=== PATIENT | female | born 1985 | race American Indian/Alaskan Native ===

== ENCOUNTER 2016-08-27 12:34 | Emergency (ER) | payer MEDICAID ==
[~2016-08-27] VITALS: Ht 154.9 cm; Wt 97.1 kg
[~2016-08-27 12:34] MED LIST: OMEP-110 PO
[2016-08-27 13:01] VITALS: BP 123/81
[2016-08-27] MEDS ORDERED: ONDANSETRON 2MG/ML, 2ML IVPush ONE (13:30)
[2016-08-27] MEDS ORDERED: SODIUM CHLORIDE 0.9% 1,000ML IVBOLUS ONE (13:30)
[2016-08-27] MEDS ORDERED: SODIUM CHLORIDE FLUSH 10ML SYR IVF ONE (13:30)
[2016-08-27 14:09] LABS: ASPARTATE AMINO TRANSFERASE 14 U/L (15-37); BLOOD UREA NITROGEN 5 mg/dL (7-18)
[2016-08-27] MEDS ORDERED: ONDANSETRON 2MG/ML, 2ML ONE (15:42)
[2016-08-27 16:57] LABS: PATH.CAST-FLAG NOT PRESENT; SPERM-FLAG NOT PRESENT; SRC-FLAG NOT PRESENT; XTAL-FLAG NOT PRESENT; YLC-FLAG NOT PRESENT
== END 2016-08-27 17:41 | disposition home or self-care (01) ==
LOC: ED 15:43
DX: O26.892 Other specified pregnancy related conditions, second trimester (principal); Z3A.19 19 weeks gestation of pregnancy; R10.12 Left upper quadrant pain; G43.909 Migraine, unspecified, not intractable, without status migrainosus
CPT/HCPCS: 36415; 76815; 80053; 81001; 84702; 85025; 87086; 96361; 96374; 99285; J2405; J7030

== ENCOUNTER 2016-12-09 15:08 | Emergency (ER) | payer MEDICAID ==
[~2016-12-09] VITALS: Ht 154.9 cm; Wt 100.5 kg
[2016-12-09] MEDS ORDERED: SODIUM CHLORIDE 0.9% 1,000ML IVBOLUS ONE (15:30)
[2016-12-09] MEDS ORDERED: SODIUM CHLORIDE FLUSH 10ML SYR IVF ONE (15:30)
[2016-12-09] MEDS ORDERED: METOCLOPRAMIDE 5 MG/ML, 2ML IVPush ONE (16:30)
[2016-12-09] MEDS ORDERED: ACETAMINOPHEN 325 MG TABLET PO ONE (16:30)
[2016-12-09] MEDS ORDERED: DIPHENHYDRAMINE 50 MG/ML, 1ML IVPush ONE (16:30)
[2016-12-09] MEDS ORDERED: DIPHENHYDRAMINE 50 MG/ML, 1ML ONE (16:31)
[2016-12-09] MEDS ORDERED: ACETAMINOPHEN 500 MG TABLET ONE (16:31)
[2016-12-09] MEDS ORDERED: METOCLOPRAMIDE 5 MG/ML, 2ML ONE (16:31)
[2016-12-09 18:55] VITALS: BP 108/54
== END 2016-12-09 18:57 | disposition home or self-care (01) ==
LOC: ED 18:51
DX: O26.893 Other specified pregnancy related conditions, third trimester (principal); Z3A.35 35 weeks gestation of pregnancy; G43.911 Migraine, unspecified, intractable, with status migrainosus
CPT/HCPCS: 96361; 96374; 96375; 99285; J1200; J2765; J7030

== ENCOUNTER 2018-04-12 10:15 | Emergency (ER) | payer MEDICAID, OTHER ==
[~2018-04-12] VITALS: Ht 154.9 cm; Wt 100.0 kg
[2018-04-12 10:43] VITALS: BP 123/92
[2018-04-12] MEDS ORDERED: IBUPROFEN 200 MG TABLET PO ONE (11:30)
[2018-04-12] MEDS ORDERED: ACETAMINOPHEN 325 MG TABLET ONE (11:36)
[2018-04-12] MEDS ORDERED: ACETAMINOPHEN 325 MG TABLET PO ONE (12:00)
== END 2018-04-12 12:27 | disposition home or self-care (01) ==
LOC: ED 11:27
DX: S83.411A Sprain of medial collateral ligament of right knee, initial encounter (principal); W01.0XXA Fall on same level from slipping, tripping and stumbling without subsequent striking against object, initial encounter; Y93.89 Activity, other specified; Y92.69 Other specified industrial and construction area as the place of occurrence of the external cause; Y99.8 Other external cause status
CPT/HCPCS: 29505; 99283

== ENCOUNTER 2018-04-16 17:13 | Emergency (ER) | payer OTHER ==
[~2018-04-16] VITALS: Ht 160 cm; Wt 100.2 kg
[2018-04-16 17:28] VITALS: BP 117/51
== END 2018-04-16 18:19 | disposition home or self-care (01) ==
LOC: ED 17:44
DX: S83.411A Sprain of medial collateral ligament of right knee, initial encounter (principal); W01.0XXA Fall on same level from slipping, tripping and stumbling without subsequent striking against object, initial encounter; Y93.89 Activity, other specified; Y92.89 Other specified places as the place of occurrence of the external cause; Y99.8 Other external cause status
CPT/HCPCS: 99283